=== PATIENT | female | born 1960 | race Caucasian/White ===

== ENCOUNTER 2017-11-06 22:15 | Emergency (ER) | payer OTHER ==
--- NOTE | 2017-11-06 23:43 | ED UPPER/LOWER EXTREMITY COMPL ---
History of Present Illness General Chief Complaint: Lower Extremity Problems Stated Complaint: L ANKLE INJURY Source: patient Exam Limitations: no limitations Vital Signs & Intake/Output Vital Signs & Intake/Output Vital Signs Date Time Temp Pulse Resp B/P B/P Pulse O2 O2 Flow FiO2 Mean Ox Delivery Rate 11/07 0020 97.7 67 18 135/62 100 Room Air 11/06 2220 97.0 80 22 150/89 99 Room Air Allergies Coded Allergies: Sulfa (Sulfonamide Antibiotics) (Severe, RASH 11/06/17) tramadol (Severe, FACIAL SWELLING 11/06/17) Reconcile Medications Oxycodone HCl/Acetaminophen (Percocet 5-325 MG Tablet) 5 MG-325 MG TABLET 1 TAB PO 4XDP PRN PAIN TEN...[id number] Triage Note: PT TO TRIAGE S/P TRIP AND FALL WHILE PUTTING ON SLIPPER TONIGHT. PER PT HEARD L ANKLE "SNAP." +SWELLING, NO OBVIOUS DEFORMITY. EVALUATED BY MD GRAY IN TRIAGE. ICE PACK APPLIED. 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 Triage Nurses Notes Reviewed? yes Onset: Abrupt Duration: hour(s): Timing: single episode today Severity: mild, moderate Pain/Injury Location: Left: Ankle. Method of Injury: fall Modifying Factors: Improves With: rest. Worsens With: movement. Associated Symptoms: swelling HPI: 56 yo woman presents with left ankle pain. She shares that "I was just standing there and then fell over and rolled my ankle." She notes no other injury and is otherwise well. Past History Travel History Traveled to [place] past 21 day No Medical History Any Pertinent Medical History? see below for history Neurological: NONE EENT: NONE Cardiovascular: hypertension Respiratory: NONE Gastrointestinal: HIATAL HERNIA Hepatic: NONE Renal: NONE Musculoskeletal: NONE Psychiatric: NONE Endocrine: NONE Blood Disorders: NONE Cancer(s): NONE FASHION EDITOR/Reproductive: NONE Surgical History Surgical History: none Psychosocial History What is your primary language Mexican Tobacco Use: Never used Family History Hx Contributory? No Review of Systems Review of Systems Constitutional: Reports: no symptoms. EENTM: Reports: no symptoms. Respiratory: Reports: no symptoms. Cardiovascular: Reports: no symptoms. Gastrointestinal/Abdominal: Reports: no symptoms. Genitourinary: Reports: no symptoms. Musculoskeletal: Reports: no symptoms. Skin: Reports: no symptoms. Neurological/Psychological: Reports: no symptoms. Hematologic/Endocrine: Reports: no symptoms. Immunological: Reports: no symptoms. All Other Systems: Reviewed and Negative Physical Exam Physical Exam General Appearance: well developed/nourished, mild distress Head: atraumatic Eyes: Bilateral: normal appearance. Ears, Nose, Throat: normal pharynx, normal ENT inspection Foot Left: swelling, diffuse swelling, pain elicited with inversion, no focal bony tenderness or deformity. Progress Differential Diagnosis: fracture, sprain, tendon injury Plan of Care: Orders Procedure Date/time Status Durable Medical Equipment 11/07 0005 Active Current Medications Sig/James Start time Last Medication Dose Stop Time Status Admin Oxycodone/ 1 TAB ONCE ONE 11/06 2229 CAN Acetaminophen 11/06 2230 (Percocet) Diagnostic Imaging: Viewed by Me: Radiology Read. Discussed w/RAD: Radiology Read. Comments: PATIENT: INA DIAS PRESENT AGE: 56 PATIENT ACCOUNT NO: [id number] : 61 LOCATION: [facility] ORDERING PHYSICIAN: Cristina Gray MD SERVICE DATE: 11/06/17 EXAM TYPE: RAD - XRY-ANKLE 3 OR MORE VIEWS L EXAMINATION: XR ANKLE, LEFT CLINICAL INFORMATION: Fall. Eversion injury. Swelling. COMPARISON: None TECHNIQUE: AP, lateral, and mortise views of the left ankle. FINDINGS: There is soft tissue swelling at lateral malleolus. There is a small chip fracture off the tip of the medial malleolus measuring about 5 x 3 mm. Minimally displaced. Ankle mortise is congruent. There is a small plantar calcaneal spur. IMPRESSION: Small chip fracture at the tip of medial malleolus. DICTATED BY: Aron Bliss MD DATE/TIME DICTATED:11/06/172349 LETTERSET PRESS SET UP OPERATOR:MIGUEL DATE/TIME TRANSCRIBED:11/06/172349 CONFIDENTIAL, DO NOT COPY WITHOUT APPROPRIATE AUTHORIZATION. <Electronically signed in Other Vendor System> SIGNED BY: Aron Bliss MD 11/06/172354 Departure Departure Disposition: HOME OR SELF CARE Condition: Stable Clinical Impression Primary Impression: Ankle sprain Secondary Impressions: Avulsion fracture Referrals: Gladys Keith MD (PCP/Family) Departure Forms: Customer Survey General Discharge Information Prescriptions: Current Visit Scripts Oxycodone HCl/Acetaminophen (Percocet 5-325 MG Tablet) 1 TAB PO 4XDP PRN PAIN #10 TAB TEN...[id number] Comments pt has no tenderness at medial malleolus at site of avulsion on xray.... discussed with patient... will do heavy nuha wrap rather than splint. pt already has crutches. pt to follow up with her established orthopedist. close follow up advised.
--- NOTE | 2017-11-06 23:55 | RADIOLOGY REPORT ---
EXAMINATION: XR ANKLE, LEFT CLINICAL INFORMATION: Fall. Eversion injury. Swelling. COMPARISON: None TECHNIQUE: AP, lateral, and mortise views of the left ankle. FINDINGS: There is soft tissue swelling at lateral malleolus. There is a small chip fracture off the tip of the medial malleolus measuring about 5 x 3 mm. Minimally displaced. Ankle mortise is congruent. There is a small plantar calcaneal spur. IMPRESSION: Small chip fracture at the tip of medial malleolus.
[2017-11-07] MEDS ORDERED: PERCOCET 5-3251 EACH PO (00:06)
[2017-11-07 00:20] VITALS: BP 135/62
== END 2017-11-07 00:22 ==
LOC: ERH 22:15
DX: S82.52XA Displaced fracture of medial malleolus of left tibia, initial encounter for closed fracture (principal); S93.402A Sprain of unspecified ligament of left ankle, initial encounter; W19.XXXA Unspecified fall, initial encounter; Y93.9 Activity, unspecified; Y92.9 Unspecified place or not applicable
CPT/HCPCS: 73610-LT; 96372; J1885